=== PATIENT | male | born 1960 | race Caucasian/White ===

== ENCOUNTER → 2023-02-21 09:18 | Outpatient (CLI) | payer BC, SELFPAY ==
[2023-02-21 09:48] LABS: Anion Gap 15.3 mEq/L (5-15); Blood Urea Nitrogen 15 mg/dl (9-20); Calcium 9.4 mg/dl (8.4-10.2); Carbon Dioxide 24 mmol/L (22.0-30.0); Chloride 104 mmol/L (98-107); Estimated Glomerular Filt Rate 68 ml/min (>60); GFR (African American) 82 ML/MIN (>60); Glucose 117 mg/dl (74-100); Potassium 4.3 mmoL/L (3.5-5.1); Sodium 139 mmol/L (136-145); Uric Acid 4.9 mg/dl (3.5-8.5)
[2023-02-21 10:19] LABS: Thyroid Stimulating Hormone 1.84 uIU/mL (0.465-4.68)
[2023-02-21 13:06] LABS: Creatinine,Urine Random 249 mg/dL (Not Estab.)
[2023-02-21 13:08] LABS: Microalbumin/Creatinine Ratio 60.2
== END ==
PROVIDERS: PCP Family Medicine; Visit Provider Family Medicine
DX: I10 Essential (primary) hypertension (principal)
CPT/HCPCS: 80048; 82043; 82570; 84443; 84550

== ENCOUNTER → 2023-04-21 09:09 | Outpatient (CLI) | payer BC, SELFPAY ==
--- OUTSIDE RECORDS SUMMARY | 2023-04-21 09:16 | XMS_ITS | Patient Health Record ---
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 Name Role Phone Latoya Huerta Unavailable [phone] Allergies No Known Allergies Reason For Referral No Information Medications Medication SIG (Take, Route, Frequency, Duration) Notes Start Date End Date Status valsartan 320 mg 1 tab(s) orally once a day Active hydroCHLOROthiazide 12.5 mg 1 cap(s) ora lly once a day Active irbesartan 150 mg 1 tab(s) orally two times per day Active amLODIPine 5 mg 1 tab(s) orally two times per day Active Problems Problem Type SNOMED Code ICD Code Onset Dates Problem Status W/U Status Risk Notes Problem Essential hypertension (47307256) Essential (primary) hypertension (I10) Active confirmed Vital Signs Heart Rate 87 /min 04/20/2023 Temperature 97.5 degrees Fahrenheit 04/20/2023 Oximetry 97 04/20/2023 Blood pressure diastolic 100 mm Hg 04/20/2023 Height 67.0 in 04/20/2023 Blood pressure systolic 182 mm Hg 04/20/2023 Weight 215.8 lbs 04/20/2023 BMI 33.8 04/20/2023 Encounters Encounter Location Date Provider Diagnosis [address]
--- NOTE | 2023-04-21 09:18 | XR_ITS ---
FINAL REPORT CLINICAL HISTORY: RT ARM PAIN FINDINGS: Right shoulder Three views were obtained. There is no acute fracture or dislocation. The joint spaces appear normal. No soft tissue abnormality is identified. IMPRESSION: No acute process. Reviewed, Interpreted and Dictated by Manny Adhikari MD Transcribed by Eve Mcgarw Authenticated and [facility]
--- NOTE | 2023-04-21 09:18 | XR_ITS ---
FINAL REPORT CLINICAL HISTORY: RT ARM PAIN FINDINGS: Right humerus Two views were obtained. There is no acute fracture or dislocation. The joint spaces appear normal. No soft tissue abnormality is identified. IMPRESSION: No acute process. Reviewed, Interpreted and Dictated by Manny Adhikari MD Transcribed by Eve Mcgraw Authenticated and . [facility]
== END ==
PROVIDERS: PCP Family Medicine; Visit Provider Physician Assistant Medical
DX: M79.601 Pain in right arm (principal)
CPT/HCPCS: 73030; 73060